=== PATIENT | female | born 1990 | race American Indian/Alaskan Native ===

== ENCOUNTER 2017-05-11 18:32 | Emergency (ER) | payer SELFPAY ==
[2017-05-11] MEDS ORDERED: ASPIRIN PO ONE (19:03)
[2017-05-11 19:49] LABS: Basophils % (Auto) 0.4 % (0.0-1.8); Eosinophils # (Auto) 0.1 K/mm3 (0.0-0.4); Eosinophils % (Auto) 1.6 % (0.0-4.3); Hematocrit 40.1 % (30.3-42.9); Hemoglobin 12.9 gm/dl (10.1-14.3); Lymphocytes # (Auto) 3.2 K/mm3 (1.2-5.4); Lymphocytes % (Auto) 48.1 % (13.4-35.0); Mean Corpuscular HGB Conc 32 % (30-34); Mean Corpuscular Hemoglobin 28 pg (28-32); Mean Corpuscular Volume 86 fl (79-97); Monocytes # (Auto) 0.4 K/mm3 (0.0-0.8); Monocytes % (Auto) 6.5 % (0.0-7.3); Platelet Count 224 K/mm3 (140-440); Red Blood Count 4.66 M/mm3 (3.65-5.03); Red Cell Distribution Width 13.5 % (13.2-15.2)
[2017-05-11 20:11] LABS: BUN/Creatinine Ratio 19; Blood Urea Nitrogen 15 mg/dL (7-17); Calcium 9.3 mg/dL (8.4-10.2); Hemolysis Index 25
--- NOTE | 2017-05-12 06:39 | Emergency Department Report ---
ED Chest Pain HPI - General Chief Complaint: Chest Pain Stated Complaint: CP Time Seen by Provider: 05/12/17 06:05 Source: patient Mode of arrival: Ambulatory Limitations: No Limitations - History of Present Illness Initial Comments: This is a 26-year-old [place] female presents to the emergency department with 2 complaints. First, she complains of some midsternal nonradiating chest pain that has been going on for the past week. She denies any shortness of breath, back pain, nausea, vomiting or diaphoresis. She denies any past medical history. She has not taken anything for her symptoms prior to presentation. No recent travel or sick contacts at home. She denies any tobacco or illicit drug use or abuse. Secondly, the patient complains of some vaginal bleeding and mild discomfort after sexual intercourse and the bleeding will continue for a little while afterwards as well. She denies any vaginal discharge, dysuria. She does not have a primary care physician or [facility]. Severity scale (0 -10): 6 - Related Data Allergies Allergy/AdvReac Type Severity Reaction Status Date / Time No Known Allergies Allergy Verified 05/12/17 06:06 Heart Score - HEART Score History: Slightly suspicious EKG: Normal Age: < 45 Risk factors: No known risk factors Troponin: < normal limit HEART Score: 0 - Critical Actions Critical Actions: 0-3 pts:0.9-1.7%risk of adverse cardiac event.Candidate for discharge ED Review of Systems ROS: Stated complaint: CP Other details as noted in HPI Comment: All other systems reviewed and negative Constitutional: denies: chills, fever Eyes: denies: eye pain, eye discharge, vision change ENT: denies: ear pain, throat pain Respiratory: denies: cough, shortness of breath, wheezing Cardiovascular: chest pain. denies: palpitations Gastrointestinal: denies: abdominal pain, nausea, diarrhea Genitourinary: dyspareunia, other (vaginal bleeding). denies: urgency, dysuria , discharge Musculoskeletal: denies: back pain, joint swelling, arthralgia Skin: denies: rash, lesions Neurological: denies: headache, weakness, paresthesias ED Past Medical Hx - Past Medical History Previous Medical History?: Yes Additional medical history: Vaginal delivery x 1 - Surgical History Past Surgical History?: No - Social History Smoking Status: Never Smoker ED Physical Exam - General Limitations: No Limitations - Other Other exam information: GENERAL: The patient is well-developed well-nourished. HENT: Normocephalic. Atraumatic. Patient has moist mucous membranes. EYES: Extraocular motions are intact. Pupils equal reactive to light bilaterally. NECK: Supple. Trachea is midline. CHEST/LUNGS: Clear to auscultation. There is no respiratory distress noted. HEART/CARDIOVASCULAR: Regular. There is no tachycardia. There is no murmur. ABDOMEN: Abdomen is soft, nontender. Patient has normal bowel sounds. There is no abdominal distention. SKIN: Skin is warm and dry. NEURO: The patient is awake, alert, and oriented. The patient is cooperative. The patient has no focal neurologic deficits. The patient has normal speech. MUSCULOSKELETAL: There is no tenderness or deformity. There is no limitation range of motion. There is no evidence of acute injury. : Deferred ED Course Vital Signs 05/11/17 05/11/17 05/12/17 18:59 23:05 02:15 Temperature 98.9 F 97.6 F 97.9 F Pulse Rate 78 77 73 Respiratory 20 16 18 Rate Blood Pressure 119/73 113/78 110/80 Blood Pressure [Left] O2 Sat by Pulse 100 100 100 Oximetry 05/12/17 05/12/17 05:56 06:00 Temperature 98 F Pulse Rate 84 88 Respiratory 20 17 Rate Blood Pressure 112/72 Blood Pressure 109/74 [Left] O2 Sat by Pulse 99 Oximetry SANDER score - Sander Score Age > 65: (0) No Aspirin use within the Past 7 Days: (0) No 3 or more CAD Risk Factors: (0) No 2 or more Angina events in past 24 hrs: (0) No Known CAD with more than 50% Stenosis: (0) No Elevated Cardiac Markers: (0) No ST Deviation Greater than 0.5mm: (0) No SANDER Score: 0 ED Medical Decision Making - Lab Data Result diagrams: 05/11/17 19:20 05/11/17 19:20 - EKG Data -: EKG Interpreted by Me EKG shows normal: sinus rhythm, axis, intervals, QRS complexes, ST-T waves Rate: normal - EKG Data When compared to previous EKG there are: previous EKG unavailable Interpretation: normal EKG - Radiology Data Radiology results: report reviewed, image reviewed interpreted by me: Chest x-ray does not show any acute process. There are no pleural effusions, obvious pneumonia and there is no pneumothorax. ULTRASOUND PELVIS DUPLEX DOPPLER COMPLETE ULTRASOUND TRANSVAGINAL HISTORY: Pelvic pain, abnormal bleeding. COMPARISON: None. TECHNIQUE: Transabdominal and transvaginal ultrasound with color and spectral doppler interrogation. FINDINGS: Uterus: Anteverted. Normal size and contour measuring 7.4 x 4.5 x 4.7 cm. No uterine mass. Normal cervix. Endometrium: Normal. 4.6 mm. Right ovary: 2.9 x 1.7 x 2.7 cm. No abnormality. Left ovary: 3.6 x 2.1 x 2.7 cm. No abnormality. No pelvic fluid or mass is identified. Spectral Doppler waveforms demonstrate arterial flow to both ovaries. IMPRESSION: Unremarkable transabdominal and transvaginal pelvic ultrasounds. Transcribed By: TTR Dictated By: KALPANA SABA JR, MD Electronically Authenticated By: KALPANA SABA JR, MD Signed Date/Time: 05/12/17 0756 - Medical Decision Making Regarding the patient's chest pain, the patient has no risk factors for coronary artery disease. EKG does not show any signs of ST elevation OK or ischemia. She has negative troponins 3. She is low on the Winkler score and has a SANDER score of 0. She is low on the well's score and negative on the pulmonary embolism rule out criteria. She will be given a referral for cardiology but she has low suspicion for ACS. Regarding her dyspareunia and abnormal vaginal bleeding, ultrasound is unremarkable and certainly does not show any signs of torsion, mass or source of this irregular bleeding. Patient deferred any pelvic examination. She was given a referral for multiple [facility] groups as well as some primary care. Vital signs stable throughout her ED course. - Differential Diagnosis dysfunction uterine bleeding, , fibroids, costochondritis, GERD Critical Care Time: No Critical care attestation.: If time is entered above; I have spent that time in minutes in the direct care of this critically ill patient, excluding procedure time. ED Disposition Clinical Impression: Dyspareunia, Dysfunctional uterine bleeding Chest pain Qualifiers: Chest pain type: unspecified Qualified Code(s): R07.9 - Chest pain, unspecified Disposition: - TO HOME OR SELFCARE Is pt being admited?: No Condition: Stable Instructions: Chest Pain (ED), Dysfunctional Uterine Bleeding (ED) Additional Instructions: Please follow up with a primary care physician in the next few days. I have given him a referral for a local door frame assembler machine, Dr. Sullivan, occasional slight follow-up regarding your chest pain. I've also given you a few local [facility] services. Return to the emergency Department with any worsening of your symptoms or any acute distress. Referrals: PRIMARY CAREMD [Primary Care Provider] - 3-5 Days BRIA KHAN MD [Staff Physician] - 3-5 Days FILIPE SULLIVAN MD [Staff Physician] - 3-5 Days [facility] [Provider Group] - 3-5 Days [facility] [Provider Group] - 3-5 Days [facility] [Outside] - 3-5 Days Forms: Work/School Release Form(ED) Time of Disposition: 09:05
[2017-05-12 06:56] VITALS: BP 112/72
[2017-05-12 06:59] LABS: Bilirubin,Urine NEG (Negative); Blood,Urine MOD (Negative); Color,Urine Yellow (Yellow); Mucus,Urine 3+ /HPF; Nitrite,Urine NEG (Negative); Protein,Urine <15 mg/dL mg/dL (Negative); Urobilinogen,Urine < 2.0 mg/dL (<2.0)
[2017-05-12 07:01] LABS: HCG Qualitative,Urine Negative (Negative)
[2017-05-12] MEDS ORDERED: ASPIRIN ONE (07:35)
--- NOTE | 2017-05-12 07:49 | XRay Report ---
AP CHEST: HISTORY: chest pain AP view of the chest demonstrates a normal mediastinal and cardiac contour with clear lungs and normal bony and soft tissue structures. IMPRESSION: Unremarkable AP chest.
--- NOTE | 2017-05-12 07:51 | Ultrasound Report ---
ULTRASOUND PELVIS DUPLEX DOPPLER COMPLETE ULTRASOUND TRANSVAGINAL HISTORY: Pelvic pain, abnormal bleeding. COMPARISON: None. TECHNIQUE: Transabdominal and transvaginal ultrasound with color and spectral doppler interrogation. FINDINGS: Uterus: Anteverted. Normal size and contour measuring 7.4 x 4.5 x 4.7 cm. No uterine mass. Normal cervix. Endometrium: Normal. 4.6 mm. Right ovary: 2.9 x 1.7 x 2.7 cm. No abnormality. Left ovary: 3.6 x 2.1 x 2.7 cm. No abnormality. No pelvic fluid or mass is identified. Spectral Doppler waveforms demonstrate arterial flow to both ovaries. IMPRESSION: Unremarkable transabdominal and transvaginal pelvic ultrasounds.
== END 2017-05-12 10:08 | disposition home or self-care (01) ==
LOC: EDBD 18:32 → ED 18:32
DX: R07.2 Precordial pain (principal); N93.8 Other specified abnormal uterine and vaginal bleeding; N94.10 Unspecified dyspareunia
CPT/HCPCS: 36415; 71045; 76830; 80048; 81001; 81025; 84484; 85025; 93005; 93010; 93975